=== PATIENT | female | born 1970 | race Caucasian/White ===

== ENCOUNTER 2022-08-27 03:23 | Emergency (ER) | payer MEDICARE ==
[~2022-08-27] VITALS: Ht 167.6 cm; Wt 136.1 kg
[2022-08-27] MEDS ORDERED: LASIX40 MG PO (03:36)
[2022-08-27] MEDS ORDERED: NORVASC10 MG PO (03:37)
[2022-08-27] MEDS ORDERED: CLONIDINE HCL0.1 MG PO (03:37)
[2022-08-27] MEDS ORDERED: LIPITOR40 MG PO (03:37)
[2022-08-27] MEDS ORDERED: KEPPRA500 MG PO (03:38)
[2022-08-27] MEDS ORDERED: LISINOPRIL10 MG PO (03:38)
[2022-08-27] MEDS ORDERED: COREG25 MG PO (03:38)
[2022-08-27] MEDS ORDERED: CITALOPRAM HBR40 MG PO (03:38)
[2022-08-27] MEDS ORDERED: HYDRALAZINE HCL50 MG PO (03:39)
[2022-08-27] MEDS ORDERED: SYNTHROID25 MCG PO (03:39)
[2022-08-27] MEDS ORDERED: ATIVAN0.5 MG PO (03:40)
[2022-08-27] MEDS ORDERED: MECLIZINE HCL25 M1 PO (03:40)
[2022-08-27] MEDS ORDERED: ASPIRIN81 MG PO (03:41)
[2022-08-27] MEDS ORDERED: COLACE100 MG PO (03:42)
[2022-08-27] MEDS ORDERED: NOVOLIN N100 UNIT/1 (03:42)
[2022-08-27] MEDS ORDERED: MAGNESIUM200 MG PO (03:43)
[2022-08-27] MEDS ORDERED: CRANBERRY125 MG PO (03:43)
[2022-08-27] MEDS ORDERED: BACTRIM DS TAB1 EACH PO (06:54)
[2022-08-27 07:06] VITALS: BP 122/81
== END 2022-08-27 07:12 | disposition home or self-care (01) ==
LOC: ED 03:23
DX: N39.0 Urinary tract infection, site not specified (principal); E66.2 Morbid (severe) obesity with alveolar hypoventilation; E87.5 Hyperkalemia; J81.1 Chronic pulmonary edema; I11.9 Hypertensive heart disease without heart failure; E11.9 Type 2 diabetes mellitus without complications; I69.354 Hemiplegia and hemiparesis following cerebral infarction affecting left non-dominant side; Z79.82 Long term (current) use of aspirin; Z68.42 Body mass index [BMI] 45.0-49.9, adult; Z79.899 Other long term (current) drug therapy
CPT/HCPCS: 36415; 71045; 80048; 80053; 81001; 83880; 85025; 96374; 99284-25; A9270; J1940

== ENCOUNTER 2023-02-05 12:48 | Observation (INO) | payer MEDICARE, OTHER ==
[~2023-02-05] VITALS: Ht 167.6 cm; Wt 128.3 kg
[~2023-02-05 12:48] MED LIST: ASPIRIN81 MG PO; ATIVAN0.5 MG PO; BACTRIM DS TAB1 EACH PO; CITALOPRAM HBR40 MG PO; CLONIDINE HCL0.1 MG PO; COLACE100 MG PO; COREG25 MG PO; CRANBERRY125 MG PO; HYDRALAZINE HCL50 MG PO; KEPPRA500 MG PO; LASIX40 MG PO; LIPITOR40 MG PO; LISINOPRIL10 MG PO; MAGNESIUM200 MG PO; MECLIZINE HCL25 M1 PO; NORVASC10 MG PO; NOVOLIN N100 UNIT/1; SYNTHROID25 MCG PO
[2023-02-05 13:01] LABS: HEMOGLOBIN 10.4 g/dL (12.0-18.0)
[2023-02-05 13:03] LABS: BASOPHILS 0.6 % (0-2); EOSINOPHILS 1.6 % (0-6); HEMATOCRIT 32.8 % (35.0-50.0); LYMPHOCYTES 12.5 % (24-44); MCH 28.3 (27-36); MCHC 31.8 g/dl (30-36); MCV 89.1 fl (81-99); MONOCYTES 8.6 % (0-12); NEUTROPHILS 76.7 % (39-80); PLATELET COUNT 231 K/uL (140-440); RBC 3.69 M/ul (4.3-5.7); RDW 16.8 (10.5-15.0)
[2023-02-05 13:21] LABS: ALBUMIN 3.2 g/dL (3.4-5.0); ALBUMIN/GLOBULIN RATIO 0.84 (1.1-2.4); ANION GAP 9.6 (7-21); BILIRUBIN, TOTAL 0.4 ng/dL (0.2-1.0); BUN/CREATININE RATIO 29.37 (6.0-28.6); CALCIUM 9.4 mg/dL (8.5-10.1); CREATININE, SERUM 1.43 mg/dL (0.55-1.02); POTASSIUM 5.6 mmol/L (3.5-5.1)
[2023-02-05 13:26] LABS: BILIRUBIN, URINE NEGATIVE (negative); BLOOD/HGB, URINE SMALL (Negative); KETONE, URINE NEGATIVE (Negative); LEUK ESTERASE, URINE NEGATIVE (negative); NITRITE, URINE NEGATIVE (negative); PH, URINE 5.5 (5-7)
[2023-02-05 13:35] LABS: BACTERIA, URINE NONE SEEN /hpf (negative); CASTS, URINE NONE SEEN \\lpf; COLLECTION TYPE, URINE CLEAN CATCH; CRYSTALS, URINE NONE SEEN (0-1+); EPITHELIAL CELLS, URINE SQUAMOUS 2+ /lpf (0-1+); REFLEX CULTURE, URINE No (No); WHITE BLOOD CELLS, URINE 0-1 /HPF (0-5)
[2023-02-05 13:38] LABS: INFLUENZA B NAA NEGATIVE (NEGATIVE); RESPIRATORY SYNCYTIAL VIR NAA NEGATIVE (NEGATIVE)
[2023-02-05 16:13] LABS: BASE EXCESS, BLOOD GAS 1.6 mmol/L (-2-2); O2 SATURATION, BLOOD GAS 96.4 % (95.0-100.0); OXYGEN RECEIVED, BLOOD GAS 4L; PO2, BLOOD GAS 84 mmHg (80-100); TOTAL CO2, BLOOD GAS 30.8
[2023-02-05 17:42] LABS: ANION GAP 10.8 (7-21); BUN/CREATININE RATIO 28.77 (6.0-28.6); CALCIUM 9.6 mg/dL (8.5-10.1); CREATININE, SERUM 1.39 mg/dL (0.55-1.02); POTASSIUM 5.8 mmol/L (3.5-5.1)
[2023-02-05 18:15] VITALS: BP 136/61
[2023-02-05 18:27] LABS: BASE EXCESS, BLOOD GAS 2.3 mmol/L (-2-2); HCO3, BLOOD GAS 28.7 mmol/L (22-26); O2 SATURATION, BLOOD GAS 95.9 % (95.0-100.0); OXYGEN RECEIVED, BLOOD GAS 32%; PCO2, BLOOD GAS 52.4 mmHg (35-45); PH, BLOOD GAS 7.35 (7.35-7.45); PO2, BLOOD GAS 76 mmHg (80-100); TOTAL CO2, BLOOD GAS 30.4
--- NOTE | 2023-02-05 19:35 | NUR ---
this LAY OUT AND DETAIL DRAFTER assuming pt cares, 1:1 sitter for pt/bipap safety
--- NOTE | 2023-02-05 19:37 | NUR ---
PATIENT WELLS CATHETER INSERTED USING STERILE TECHNIQUE WITH THE HELP OF FOUR OTHER NURSES. URINE FLOWING WITH NO APPARENT ISSUES. SUKUMAR AND SUSHMA RNS TAKING OVER FOR THE COPY PREPARER. PATIENT CALL LIGHT AND PERSONAL BELONGINGS ARE WITHIN REACH. PATIENTS THREE CHILDREN ARE AT THE BEDISDE.
--- NOTE | 2023-02-05 19:46 | NUR ---
REPORT RECIEVED FROM DAY SHIFT RN. ASSISSTED DAY SHIFT WITH WELLS PLACEMENT. LINENS AND GOWN CHANGED. BED BATH COMPLETED. PATIENTS CHILDREN AT BEDSIDE. NO FURTHER NEEDS. CALL LIGHT IN REACH.
[2023-02-05 19:56] VITALS: BP 113/70
--- NOTE | 2023-02-05 20:15 | NUR ---
assist RN with vitals, accu check done, family visting
--- NOTE | 2023-02-05 20:16 | NUR ---
CALLED MD TO UPDATE ON PATIENT UNABLE TO SWALLOW PO MEDICATION. RECIEVED VERBAL ORDER FOR IV MEDICATION. VERIFIED ORDER USING REPEAT BACK METHOD.
--- NOTE | 2023-02-05 21:00 | NUR ---
PATIENT ONE ON ONE FOR SAFETY. MEDICATION ADMINISTERED, SEE MAR. ASSESSMENT COMPLETED. LUNG SOUNDS DIMINISHED. VS AND I&Os OBTAINED AND DOCUMENTED. LEFT ARM RESTED AND FEET ON PILLOW. CALL LIGHT IN REACH. PATIENT REPOSITIONED IN BED. PATIENT OPENS EYES TO NAME. PATIENT DOES NOT ANSWER QUESTIONS AT THIS TIME.
[2023-02-05 21:17] LABS: ANION GAP 10.2 (7-21); BUN/CREATININE RATIO 26.81 (6.0-28.6); CALCIUM 9.4 mg/dL (8.5-10.1); CREATININE, SERUM 1.38 mg/dL (0.55-1.02); POTASSIUM 5.2 mmol/L (3.5-5.1)
--- NOTE | 2023-02-05 21:26 | NUR ---
PLACED CALL TO MED TO UPDATE ON PATIENTS POTASSIUM LEVEL. NO NEW ORDERS AT THIS TIME.
--- NOTE | 2023-02-05 22:06 | NUR ---
PATIENT RESTING IN BED WITH EYES CLOSED WEARING BIPAP. CPOX READING WNL. PREPPER AT BEDSIDE FOR PATIENT SAFETY.
--- NOTE | 2023-02-05 22:30 | NUR ---
manning emptied at this time
--- NOTE | 2023-02-05 23:01 | NUR ---
pt was coughing, called RN in to check pt, boosted 2pa, provided sips of water, attempted multiple need questions with pt, pt resumed bipap
--- NOTE | 2023-02-05 23:14 | NUR ---
BIPAP REMOVED. 3L NC IN PLACE. PATIENT HAD SIPS OF WATER, NO S/SX OF ASPIRATION NOTED. PATIENT BACK ON BIPAP. RACK PULLER AT BEDSIDE.
--- NOTE | 2023-02-05 23:28 | NUR ---
RT IN TO ASSESS PATIENT. NEW MASK PLACED ON PATIENT. PATIENT WILL REMAIN ON BIPAP AT THIS TIME. RN AT BEDSIDE.
--- NOTE | 2023-02-06 00:53 | NUR ---
ROUNDING ON PATIENT. RT IN ROOM ADMINISTERING NEB. CARTOGRAPHY/MAPPING TECHNICIAN AT BEDSIDE. CALL LIGHT IN REACH.
--- NOTE | 2023-02-06 01:15 | NUR ---
VITAL SIGNS AND I&0s OBTAINED AND RECORDED. PATIENT REPOSITIONED IN BED WITH A PILLOW UNDER THE RIGHT HIP. LEFT HAND AND FEET ELEVATED WITH PILLOWS. BIPAP REMOVED OFF PATIENT AND REPLACED WITH 3L NC. PATIENT DRANK SOME SIPS OF WATER. PATIENT ANSWERING YES/NO QUESTIONS. ASSESSMENT COMPLETE. BILAT UPPER LUNG SOUNDS CEAR, BILAT LOWER LUNG SOUNDS DIMINISHED. PATIENT BACK ON BIPAP. REGIONAL EDUCATION MANAGER AT BEDSIDE. CALL LIGHT IN REACH.
[2023-02-06 01:50] VITALS: BP 134/62
--- NOTE | 2023-02-06 03:09 | NUR ---
ROUNDING IN PATIENT. PATIENT RESTING IN BED WITH EYES CLOSED. RESPIRATIONS EVEN. PATIENT SAT IS 93% ON BIPAP. PATIENT SITTER AT BEDSIDE.
--- NOTE | 2023-02-06 03:34 | NUR ---
PATIENT REPOSITIONED IN BED. 2 PILLOWS UNDER LEFT HIP, ONE PILLOW UNDER RIGHT HIP. PATIENTS LEGS ELEVATED WITH PILLOWS. CALL LIGHT IN REACH. SITTER AT BEDSIDE. BIPAP ON PATIENT.
[2023-02-06 05:07] LABS: PH, VENOUS 7.487 (7.31-7.41)
[2023-02-06 05:08] LABS: BASOPHILS 0.4 % (0-2); EOSINOPHILS 1.6 % (0-6); HEMATOCRIT 31.6 % (35.0-50.0); HEMOGLOBIN 10.3 g/dL (12.0-18.0); LYMPHOCYTES 17.3 % (24-44); MCH 28.4 (27-36); MCHC 32.5 g/dl (30-36); MCV 87.3 fl (81-99); MONOCYTES 10.6 % (0-12); NEUTROPHILS 70.1 % (39-80); PLATELET COUNT 226 K/uL (140-440); RBC 3.62 M/ul (4.3-5.7); RDW 17.4 (10.5-15.0)
[2023-02-06 05:17] LABS: ANION GAP 10.4 (7-21); BUN/CREATININE RATIO 24.6 (6.0-28.6); CALCIUM 9.4 mg/dL (8.5-10.1); CREATININE, SERUM 1.26 mg/dL (0.55-1.02); POTASSIUM 4.4 mmol/L (3.5-5.1)
--- NOTE | 2023-02-06 05:39 | NUR ---
ROUNDING ON PATIENT. PATIENT RESTING IN BED WITH EYES CLOSED. CPOX 93% ON 3L NC. CALL LIGHT IN REACH.
[2023-02-06 06:36] VITALS: BP 132/63
--- NOTE | 2023-02-06 06:52 | NUR ---
PATIENT REPOSITINED IN BED. VS AND I&Os OBTAINED AND DOCUMENTED. PATIENT ON 3L NC AND 97%. SECOND ASSESSMENT COMPLETE. PATIENT KNOWS OWN NAME, BUT NOT WHERE SHE IS. PATIENT ANSWERES YES/NO QUESTIONS. CALL LIGHT IN REACH.
--- NOTE | 2023-02-06 07:26 | NUR ---
REPORT RECIEVED FROM AIRPORT MAINTENANCE CHIEF RN. PATIENT SITTING UPRIGHT IN BED. PATIENT ALERT TO SELF AND ABLE TO STATE "I WANT WATER". PATIENT AWAKE AND ALERT. PATIENT STATED NO FURTHER NEEDS AT THIS TIME. CALL LIGHT WITHIN REACH.
--- NOTE | 2023-02-06 09:10 | NUR ---
RT IN ROOM FOR ABG. PT WAKES TO VOICE, FOLLOWS COMMANDS AND ANSWERS YES OR NO QUESTIONS.
[2023-02-06 09:19] LABS: BASE EXCESS, BLOOD GAS 5.9 mmol/L (-2-2); HCO3, BLOOD GAS 31.2 mmol/L (22-26); O2 SATURATION, BLOOD GAS 94.6 % (95.0-100.0); OXYGEN RECEIVED, BLOOD GAS 3L; PCO2, BLOOD GAS 46.9 mmHg (35-45); PH, BLOOD GAS 7.43 (7.35-7.45); PO2, BLOOD GAS 67 mmHg (80-100); TOTAL CO2, BLOOD GAS 32.7
[2023-02-06 10:40] VITALS: BP 141/71
[2023-02-06] MEDS ORDERED: MELATONIN10 M2 PO (11:00)
[2023-02-06] MEDS ORDERED: CENTRUM SILVER1 EAC8 PO (11:00)
[2023-02-06] MEDS ORDERED: VITAMIN D325 MC4 PO (11:01)
--- NOTE | 2023-02-06 11:03 | NUR ---
MED REC COMPLETE
--- NOTE | 2023-02-06 13:01 | NUR ---
PATIENT ABLE TO HAVE A BOWEL MOVEMENT AFTER SUPPOSITORY GIVEN. BED SHEETS CLEANED AND BED BATH GIVEN. MORENO CARE COMPLETE. INPUT AND OUTPUT VALUES DOCUMENTED. PATIENT RESTING IN THE BED WITH EYES CLOSED AND EVEN AND UNLABORED RESPIRATIONS. PATIENT POSITIONED IN SEMI FOWLERS. PATIENT TWO DAUGHTERS ARE AT THE BEDSIDE. PATIENT WAITING TO EAT LUNCH UNTIL AFTER THEY ARE DONE RESTING. PATIENT AND FAMILY STATED NO FURTHER NEEDS AT THIS TIME. PATIENT STATED NO FURTHER NEEDS AT THIS TIME. CALL LIGHT AND PERSONAL BELONGIGNS ARE WITHIN REACH.
[2023-02-06 14:27] VITALS: BP 112/53
--- NOTE | 2023-02-06 14:32 | NUR ---
PATIENT REPOSITIONED IN BED WITH LEG LEG AND LEFT ARM ELEVATED ON PILLOWS. PATIENT VITAL SUGNS AND INTAKE AND OUTPUT VALUES DOCUMENTED. PATIENT SON AT BEDSIDE. PATIENT STATED NO FURTHER NEEDS AT THIS TIME. PATIENT CALLL LIGHT AND PERSONAL BELONGINGS ARE WITHIN REACH.
--- NOTE | 2023-02-06 15:20 | EKG ---
[facility] [address] [facility] [address] [place], [place] [address] Signed Normal sinus rhythm Low voltage QRS Borderline ECG No previous ECGs available Confirmed by RODRICK BRISENO MD ([id number]) on 02/06/2023 3:19:53 PM Electronically Signed By: RODRICK BRISENO 02/06/23 1520 PATIENT NAME: TED RAMEY Electrocardiogram DATE OF : 72 PHYSICIAN: RODRICK BRISENO REPORT #: [id number] REPORT IS CONFIDENTIAL AND NOT TO BE RELEASED WITHOUT AUTHORIZATION
--- NOTE | 2023-02-06 16:50 | NUR ---
PATIENT SITTING IN THE BED. PATIENT IV SITE DRESSINGS CHANGED. BOTH IV SITES FLUSHED WITH 10 ML NS. PATIENT TOLERATED WELL. PATIENT BOOSTED UP IN THE BED. HEAD OF BED IN SEMI-FOWLERS TO HELP WITH WORK OF BREATHING. PATIENTS DAUGHTER AT BEDSIDE. PATIENTS REQUESTING TO WAIT TO BRING DINNER IN UNTIL A BIT LATER SINCE SHE WAS SNACKING ON LUNCH A LITTLE BIT. BLOOD SUGAR CHECK WILL BE DONE PRIOR TO EATING. PATIENT AND FAMILY STATED NO FURTHER NEEDS AT THIS TIME. CALL LIGHT AND PERSONAL BELONGINGS ARE WITHIN REACH.
[2023-02-06 18:32] VITALS: BP 117/63
--- NOTE | 2023-02-06 19:40 | NUR ---
REPORT RECIEVED FROM DAY SHIFT RN. PATIENT IN BED WITH DAUGHTER AT BEDSIDE ON 3L NC. DAUGHTER STATES SHE WILL BE STAYING OVER NIGHT. CALL LIGHT IS WITHIN REACH. NO FURTHER NEEDS.
[2023-02-06 20:25] VITALS: BP 104/56
--- NOTE | 2023-02-06 21:15 | NUR ---
PATIENT REPOSITIONED IN BED WITH PILLOW PLACED UNDER LEFT SIDE. LEFT ARM ELEVATED ON PILLOW. VS AND I&Os OBTAINED AND DOCUMENTED. IVs FLUSHED AND WNL. CATHETER CARE DONE. MEDICATIONS ADMINISTERED, SEE MAR. ASSESSMENT COMPLETE. LUNG SOUNDS CLEAR, DIMINISHED IN BASES ON 3L NC. DAUGHTER AT BEDSIDE, PLANS TO STAY OVER NIGHT. WARM BLANKET AND FRESH WATER PROVIDED. CALL LIGHT IN REACH. NO FURTHER NEEDS.
--- NOTE | 2023-02-06 22:15 | NUR ---
PATIENT PLACED ON BIPAP MASK BY RT.
--- NOTE | 2023-02-06 22:27 | NUR ---
CALL LIGHT ANSWERED. BIPAP MASK LEAKING, RT IN TO ADJUST MASK. PATIENT AND DAUGHTER STATE NO FURTHER NEEDS. CALL LIGHT IN REACH.
--- NOTE | 2023-02-06 23:36 | NUR ---
PATIENT RESTING IN BED WITH EYES CLOSED. BIPAP MACHINE IN PLACE ON PATIENT. PATIENT AND DAUGHTER STATE NO FURTHER NEEDS. CALL LIGHT IN REACH.
--- NOTE | 2023-02-07 00:04 | NUR ---
PATIENT REPOSITIONED IN BED. PATIENT FLOATED WITH PILLOWS. CALL LIGHT IN REACH.
--- NOTE | 2023-02-07 01:39 | NUR ---
PATIENT LAYING IN BED WITH EYES CLOSED. s. DAUGHTER RESTING ON COUCH AT BEDSIDE. CALL LIGHT IN REACH.
--- NOTE | 2023-02-07 03:03 | NUR ---
PATIENT RESTING IN BED ON BACK WITH EYES CLOSED. BIPAP ON. RESPIRATIONS EVEN. CALL LIGHT IN REACH.
[2023-02-07 05:44] VITALS: BP 107/49
--- NOTE | 2023-02-07 05:47 | NUR ---
PATIENT REMOVED FROM BIPAP. PATIENT ON 3L NC O2 SAT 96%. PATIENT AWAKE WATCHING TV. PATIENT READJUSTED IN BED. PATIENT VS I&Os OBTAINED AND RECORDED. ASSESSMENT COMPLETE. PATIENT IS AWARE OF SELF, AND PLACE. PATIENT ANSERING YES OR NO QUESTIONS. DAUGHTER IS AT BEDSIDE. CALL LIGHT IS IN REACH. NO FURTHER NEEDS. FRESH WATER PROVIDED.
--- NOTE | 2023-02-07 07:30 | NUR ---
RECIEVED SHIFT REPORT PT IS CURRENTLY AWAKE AND WATCHING TV. WHEN I INTRODUCED MYSELF PT HAD NO REPONSE JUST EYE CONTACT. FAMILY MEMBER IN ROOM. NO OTHER CARES ARE NEEDED OR REQUESTED AT THIS TIME CALL LIGHT WITHIN REACH.
--- NOTE | 2023-02-07 09:32 | NUR ---
RX FOR BIPAP, FACESHEET, CHART NOTES AND BIPAP SETTINGS FAXED TO [facility] FOR DISCHARGE. SPOKE WITH PATIENTS DAUGHTER AND . FAMILY IS REQUESTING HOME HEALTH POST DISCHARGE, ASSISTANCE WITH WITH TRANSPORTATION AND TO TO DISCUSS HER SLEEP STUDY. WILL SEND HOME HEALTH AT DISCHARGE. LEFT MESSAGE FOR [facility] TO CONTACT PATIENT DAUGHTER TOMORROW.
[2023-02-07 10:09] LABS: BASOPHILS 0.4 % (0-2); EOSINOPHILS 1.5 % (0-6); HEMATOCRIT 31.8 % (35.0-50.0); HEMOGLOBIN 10.3 g/dL (12.0-18.0); LYMPHOCYTES 12.5 % (24-44); MCH 28.4 (27-36); MCHC 32.5 g/dl (30-36); MCV 87.6 fl (81-99); MONOCYTES 10.6 % (0-12); PLATELET COUNT 223 K/uL (140-440); RBC 3.63 M/ul (4.3-5.7); RDW 16.9 (10.5-15.0)
[2023-02-07 10:36] LABS: ALBUMIN 2.9 g/dL (3.4-5.0); ALBUMIN/GLOBULIN RATIO 0.81 (1.1-2.4); ANION GAP 10.6 (7-21); BILIRUBIN, TOTAL 0.5 ng/dL (0.2-1.0); BUN/CREATININE RATIO 18.85 (6.0-28.6); CALCIUM 8.8 mg/dL (8.5-10.1); CREATININE, SERUM 1.22 mg/dL (0.55-1.02); POTASSIUM 4.6 mmol/L (3.5-5.1); PROTEIN, TOTAL 6.5 g/dL (6.4-8.2); TSH, 3RD GENERATION 3.284 uIU/mL (0.358-3.740)
[2023-02-07 10:40] VITALS: BP 103/53
--- NOTE | 2023-02-07 10:44 | NUR ---
IV ZITHROMAX INFUSING FOR 1 HOUR.
--- NOTE | 2023-02-07 10:50 | NUR ---
RN SURESH OVER TO CHECK ON PT WHILE THIS RN IN ROOM. PT HAD A 20 SECOND RUN OF VTACH. PT REMAINED SAME, NO SOB OR CHEST DISCOMFORT REPORTED. DAUGHTER AND OTHER FAMILY IN ROOM. SPOKE WITH WHOM ADDED A MAG TO RECENTLY DRAWN LAB.S
--- NOTE | 2023-02-07 11:06 | NUR ---
PLACED SUPPOSITORY PER PT REQUEST.
[2023-02-07] MEDS ORDERED: AMOX TR-K CLV1 EACH PO (11:16)
--- NOTE | 2023-02-07 11:48 | NUR ---
PT RECEIVING NURSING CARE AHEAD OF IMMINENT DISCHARGE. DID NOT INTERRUPT. PRAYED FOR [place] OF HEALTH AND ABIDING PEACE.
--- NOTE | 2023-02-07 14:12 | NUR ---
PT REPORTED FEELING LIKE SHE HAD PEED. CHANGED DEPENDS AND CHUCKS WITH AMI SCHAFFER'S ASSISTANCE. PT TOLTERATED WELL.
[2023-02-07 14:13] VITALS: BP 111/61
--- NOTE | 2023-02-07 14:17 | NUR ---
PATIENT HAD INCONT. VOID. THIS SOLUTIONS DEVELOPER AND RN XIOMARA IN TO CHANGE PATIENT. MORENO CARE DONE. NEW ATTENDS IN PLACE. VITALS AND I&O'S DONE. CALL LIGHT IN REACH. NO FURTHER NEEDS AT THIS TIME.
--- NOTE | 2023-02-07 15:20 | NUR ---
PT CALLED FOR BEEPING. SL IV, MAG COMPLETE.
--- NOTE | 2023-02-07 16:53 | NUR ---
PT EXPRESSED PAIN IN LOWER BACK AND ASKED FOR ICY/HOT IF POSSIBLE. I EXPLAINED TO DAUGHTER AND PATIENT THAT WE DONT CARRY THAT PRODUCT BUT I CAN ASK THE DR ABOUT A [place] PATCH. NOEL SOLANO TALKED TO DR AND HE APPROVED OF THE PATCH. PT GOT CHANGED AND THEN PATCHED APPLIED TO MIDDLE OF BACK. NO OTHER CARES REQUESTED OR NEEDED AT THIS TIME. CALL LIGHT WITHIN REACH
[2023-02-07 18:31] VITALS: BP 101/49
--- NOTE | 2023-02-07 19:48 | NUR ---
REPORT RECIEVED FROM DAY SHIFT RN. PATIENT RESTING IN BED WITH DAUGHTER AT BEDSIDE. WHITE BOARD UPDATED. CALL LIGHT IN REACH.
[2023-02-07 21:53] VITALS: BP 115/60
--- NOTE | 2023-02-07 22:10 | NUR ---
VS AND I&Os OBTAINED AND RECORDED. PATIENT REPOSITIONED IN BED. PUREWICK PUT IN PLACE AFTER PERICARE PROVIDED. EVENING MEDICATIONS ADMINISTERED, SEE MAR. ASSESSMENT COMPLETE. PATIENT REQUESTING FOOD. SANDWICH BOX PROVIDED. DAUGHTER AT BEDSIDE, HELPING PATIENT EAT. DAUGHTER PROVIDED WITH BEDDING, AND WILL BE STAYING OVER NIGHT. PATIENT HAS NO FURTHER NEEDS. CALL LIGHT IN REACH.
--- NOTE | 2023-02-08 00:23 | NUR ---
PATIENT RESTING IN BED WITH EYES CLOSED. RESPIRATIONS EVEN AND UNLABORED. DAUGHTER RESTING ON COUCH. CALL LIGHT IN REACH.
[2023-02-08 02:36] VITALS: BP 123/62
--- NOTE | 2023-02-08 02:38 | NUR ---
PATIENT RESTING IN BED. RESPIRATIONS EVEN AND UNLABORED. VS OBTAINED AND RECORDED. CALL LIGHT IN REACH.
--- NOTE | 2023-02-08 03:38 | NUR ---
PATIENT IN BED RESTING ON BACK WITH HOB ELEVATED. RESPIRATIONS EVEN AND UNLABORED. DAUGHTER RESTING ON COUCH. CALL LIGHT IN REACH.
[2023-02-08 06:43] VITALS: BP 109/60
--- NOTE | 2023-02-08 06:45 | NUR ---
PATIENT RESTING IN BED WITH EYE CLOSED. VS AND I&Os OBTAINED AND RECORDED. NEW PUREWICK PUT IN PLACE AFTER MORENO CARE PROVIDED. NEW BRIEF IN PLACE. ASSESSMENT COMEPLETE. EXPIRATORY WHEEZES IN LEFT UPPER AND LOWER LOBES. FRESH WATER AND WARM BLANKET PROVIDED. WEIGHT ON BED SCALE OBTAINED. NO FURTHER NEEDS. CALL LIGHT IN REACH.
--- NOTE | 2023-02-08 07:48 | NUR ---
PT RESTING EYES CLOSED AT TIME OF SHIFT REPORT. DAUGHTER IS AWAKE AND PRESENT IN THE ROOM DENIES NEEDS OR CONCERNS
--- NOTE | 2023-02-08 10:08 | NUR ---
LIGHTS OFF AND CURTAIN CLOSED. DID NOT DISTURB. PRAYED SILENTLY FOR [employer] OF HEALTH AND ABIDING PEACE.
[2023-02-08 10:20] VITALS: BP 123/62
--- NOTE | 2023-02-08 10:21 | NUR ---
PATIENT IN BED RESTING WITH EYES CLOSED, DAUGHTER IN ROOM. VITALS AND I&O'S CHARTED. CALL LIGHT IN REACH. NO FURTHER NEEDS AT THIS TIME.
--- NOTE | 2023-02-08 10:39 | NUR ---
PT TOLERATES 100% OF MORNING MEAL WITH DAUGHTERS ASSIST. REFUSES SUPPOSITORY AT THIS TIME, RESTING EYES CLOSED DAUGHTER REMAINS PRESENT
--- NOTE | 2023-02-08 11:14 | NUR ---
PT RESTING EYES CLOSED. APPROACHED DAUGTHER STATING PT SHOULD BE REPOSITIONED, ASKING IF IT IS A GOOD TIME OR LET HER SLEEP. DAUGHTER STATES PT SHOULD BE ALLOWED TO SLEEP AT THIS TIME. ENCOURAGED HER TO CALL WHEN PT WAKES UP OR IF THERE ARE ANY NEEDS
--- NOTE | 2023-02-08 11:28 | NUR ---
RECVD CALL FROM JOSE HUNTER FOR [facility] AT THIS TIME. INSURANCE REQUESTING FURTHER DOCUMENTATION. ADVISED [facility] I WILL UPDATE DR. BRISENO. DR. BRISENO NOTIFIED, OKAY TO DC PATIENT. INTO PATIENT ROOM. PATIENT SLEEPING, DAUGHTER AT THE BEDSIDE. ADVISED THE NEED FOR FURTHER DOCUMENTATION AND ENCOURAGED TO SPEAK WITH PCP AT HER VISIT ON TUESDAY. PATIENTS DAUGHTER AGREEABLE TO DISCHARGE AT THIS TIME. CALL PLACED TO TO PFD, WILL DISPATCH FOR NON EMERGANT TRANSPORT AND CALL FLOOR WITH ETA WHEN AVAILABLE.
--- NOTE | 2023-02-08 11:50 | NUR ---
BELONGINGS BAG PROVIDED DAUGHTER GATHERING ITEMS FOR DC. LOTIONS, WIPES, AND OPEN HOSPITAL SUPPLIES INCLUDED WITH PERSONAL ITEMS
--- NOTE | 2023-02-08 11:56 | NUR ---
UR NOTE [facility]CG HEART FAILURE: OBSERVATION CARE (ISC) 02/05/23 MET OBSERVATION ADMIT
== END 2023-02-08 11:55 | disposition home or self-care (01) ==
LOC: ED 12:48 → MS 12:49
PROVIDERS: Emergency Medicine; ADMIT Internal Medicine; ATTEND Internal Medicine
DX: E66.2 Morbid (severe) obesity with alveolar hypoventilation (principal); R06.89 Other abnormalities of breathing; R41.82 Altered mental status, unspecified; E11.9 Type 2 diabetes mellitus without complications; G40.909 Epilepsy, unspecified, not intractable, without status epilepticus; I11.0 Hypertensive heart disease with heart failure; I50.9 Heart failure, unspecified
CPT/HCPCS: 36415; 36600; 51701; 70450; 71045; 80048; 80053; 80061; 81001; 82803; 83036; 83735; 83880; 84443; 85025; 87502; 93005; 93010; 94640; 94660; 94762; 96365; 96366; 96367; 96375; 96376; 97161; 97165; 99285-25; A9270; C9803; G0378; J0456; J0696; J1815; J1940; J1953; J3475; J7060; U0002

== ENCOUNTER 2023-09-13 10:22 | Emergency (ER) | payer MEDICARE, MEDICAID ==
[~2023-09-13] VITALS: Ht 162.6 cm; Wt 126.8 kg
[~2023-09-13 10:22] MED LIST changes: +ADULT ASPIRIN R81 MG PO; +AMLODIPINE BESY10 MG PO; +AMOX TR-K CLV1 EACH PO; +ATORVASTATIN CA40 MG PO; +CARVEDILOL25 MG PO; +CEFDINIR300 MG PO; +CENTRUM SILVER1 EAC8 PO; +CONSTULOSE10 GM/15 M PO; +FUROSEMIDE40 MG PO; +HUMULIN R100 UNIT/1 SUB-Q; +LEVETIRACETAM500 MG PO; +LEVOTHYROXINE25 MCG PO; +LORAZEPAM0.5 MG PO; +MECLIZINE HCL12.5 MG PO; +MELATONIN 10 M1 EACH PO; +MELATONIN10 M2 PO; +MULTI VITAMIN1 EACH PO; +NOVOLIN N100 UNIT/1 SUB-Q; +OLANZAPINE5 MG PO; +ONDANSETRON HCL4 MG PO; +OZEMPIC0.25 MG/02 SUB-Q; +TRELEGY ELLIPT1 EACH INH; +VENTOLIN HFA18 GM INH; +VITAMIN D325 MC4 PO; +VITAMIN D325 MCG PO; +ZYPREXA ZYDIS5 MG PO
--- OUTSIDE RECORDS SUMMARY | 2023-09-13 10:24 | XMS ---
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 Jared has no Care Guidelines for this patient. Beth VISIT COUNT (12 MO.) 5 COR[facility] Lopez TOTAL 5 NOTE: Visits indicate total known visits. ED/C VISIT TRACKING (12 MO.) 09/13/2023 10:23 [facility] [place] TYPE: Emergency COMPLAINT: - HIGH BLOOD SUGAR 07/27/2023 13:53 [facility] [place] TYPE: Emergency COMPLAINT: - LOW 02 SATS DIAGNOSES: - Hormone replacement therapy - [facility] (current) use of aspirin - emt intermediate (current) use of insulin - Other longterm (current) drug therapy - Personal history of transient ischemic attack (TIA), and cerebral infarction without residual deficits - Shortness of breath - Urinary tract infection, site not specified 06/21/2023 11:05 [facility] [place] TYPE: Emergency COMPLAINT: - DIFFICULT BREATHING 04/12/2023 17:28 [facility] TYPE: Emergency COMPLAINT: - URINE PROBLEM DIAGNOSES: - Body mass index [BMI] 45.0-49.9, adult - Constipation, unspecified - Essential (primary) hypertension - Hormone replacement therapy - [facility] (current) use of aspirin - emt intermediate (current) use of insulin - Obesity, unspecified - Other termite exterminator (current) drug therapy - Other symptoms and signs involving appearance and behavior - Type 2 diabetes mellitus without complications 02/05/2023 12:48 [facility] TYPE: Emergency COMPLAINT: - ALTERED LOC INPATIENT VISIT TRACKING (12 MO.) 06/21/2023 13:26 [facility] [place] TYPE: Medical Surgical COMPLAINT: - CO2 RETENTION DIAGNOSES: - Acute and chronic respiratory failure with hypercapnia - Acute and chronic respiratory failure with hypercapnia - Acute and chronic respiratory failure with hypoxia - Acute and chronic respiratory failure with hypoxia - Acute respiratory failure with hypoxia - Body mass index [BMI] 50.0-59.9, adult - Chronic obstructive pulmonary disease, unspecified - Chronic obstructive pulmonary disease, unspecified - Dependence on supplemental oxygen - Dependence on supplemental oxygen - Essential (primary) hypertension - Essential (primary) hypertension - Hemiplegia and hemiparesis following cerebral infarction affecting left non-dominant side - Hemiplegia and hemiparesis following cerebral infarction affecting left non-dominant side - Hyperkalemia - Hyperkalemia - Hypotension, unspecified - [facility] (current) use of aspirin - emt intermediate (current) use of aspirin - [facility] (current) use of inhaled steroids - [facility] (current) use of inhaled steroids - emt intermediate (current) use of insulin - emt intermediate (current) use of insulin - Morbid (severe) obesity due to excess calories - Morbid (severe) obesity due to excess calories - Other longterm (current) drug therapy - Other longterm (current) drug therapy - Type 2 diabetes mellitus without complications - Type 2 diabetes mellitus without complications 02/05/2023 12:49 [facility] TYPE: Observation COMPLAINT: - ALTERED MENTAL STATUS DIAGNOSES: - Altered mental status, unspecified - Epilepsy, unspecified, not intractable, without status epilepticus - Heart failure, unspecified - Hypertensive heart disease with heart failure - Morbid (severe) obesity with alveolar hypoventilation - Other abnormalities of breathing - Type 2 diabetes mellitus without complications [email or web address]
[2023-09-13] MEDS ORDERED: PANTOPRAZOLE SODIUM 40 MG TABEC PO ONE (10:45)
[2023-09-13] MEDS ORDERED: SODIUM CHLORIDE 0.9% 1,000 ML IV ONE (10:45)
[2023-09-13] MEDS ORDERED: ondansetron HCL 4 MG/2 ML VIAL IV ONE (10:45)
[2023-09-13 10:49] LABS: BASOPHILS 0.2 % (0-2); EOSINOPHILS 0.1 % (0-6); HEMATOCRIT 40.7 % (35.0-50.0); HEMOGLOBIN 13.6 g/dL (12.0-18.0); MCH 30.2 (27-36); MCHC 33.3 g/dl (30-36); MCV 90.6 fl (81-99); MONOCYTES 8.4 % (0-12); NEUTROPHILS 84.3 % (39-80); PLATELET COUNT 246 K/uL (140-440); RDW 15.7 (10.5-15.0)
[2023-09-13 10:59] LABS: ALBUMIN 2.9 g/dL (3.4-5.0); ALBUMIN/GLOBULIN RATIO 0.66 (1.1-2.4); ANION GAP 14.1 (7-21); BILIRUBIN, TOTAL 0.5 ng/dL (0.2-1.0); BUN/CREATININE RATIO 21.73 (6.0-28.6); CALCIUM 9.6 mg/dL (8.5-10.1); CREATININE, SERUM 1.61 mg/dL (0.55-1.02); POTASSIUM 5.1 mmol/L (3.5-5.1); PROTEIN, TOTAL 7.3 g/dL (6.4-8.2)
[2023-09-13 11:01] LABS: PH, VENOUS 7.398 (7.31-7.41)
[2023-09-13 11:40] LABS: ABO O; ANTIBODY SCREEN NEGATIVE; RH POSITIVE
[2023-09-13 12:27] LABS: BILIRUBIN, URINE NEGATIVE (negative); BLOOD/HGB, URINE SMALL (Negative); KETONE, URINE NEGATIVE (Negative); LEUK ESTERASE, URINE NEGATIVE (negative); NITRITE, URINE NEGATIVE (negative); PH, URINE 5.5 (5-7)
[2023-09-13] MEDS ORDERED: Insulin Regular, Human 100 UNIT/ML ML SUB-Q ONE (12:30)
[2023-09-13 12:41] LABS: BACTERIA, URINE NONE SEEN /hpf (negative); CASTS, URINE HYALINE 1+ \\lpf; COLLECTION TYPE, URINE CLEAN CATCH; CRYSTALS, URINE NONE SEEN (0-1+); EPITHELIAL CELLS, URINE SQUAMOUS 3+ /lpf (0-1+); REFLEX CULTURE, URINE No (No); WHITE BLOOD CELLS, URINE 0-1 /HPF (0-5)
[2023-09-13] MEDS ORDERED: ONDANSETRON ODT4 MG PO (12:59)
[2023-09-13] MEDS ORDERED: PROTONIX40 MG PO (12:59)
[2023-09-13] MEDS ORDERED: ondansetron HCL 4 MG/2 ML VIAL ONE (13:23)
[2023-09-13 14:32] LABS: HEMOGLOBIN 13.5 g/dL (12.0-18.0); MCV 91.8 fl (81-99)
[2023-09-13 14:35] LABS: BASOPHILS 0.5 % (0-2); EOSINOPHILS 0.2 % (0-6); HEMATOCRIT 41.6 % (35.0-50.0); LYMPHOCYTES 9.8 % (24-44); MCH 29.8 (27-36); MCHC 32.5 g/dl (30-36); MONOCYTES 8.9 % (0-12); NEUTROPHILS 80.6 % (39-80); PLATELET COUNT 241 K/uL (140-440); RBC 4.54 M/ul (4.3-5.7); RDW 15.1 (10.5-15.0)
[2023-09-13 14:40] LABS: ANION GAP 11.8 (7-21); BUN/CREATININE RATIO 23.97 (6.0-28.6); CALCIUM 9.3 mg/dL (8.5-10.1); CREATININE, SERUM 1.46 mg/dL (0.55-1.02); POTASSIUM 4.8 mmol/L (3.5-5.1)
[2023-09-13] MEDS ORDERED: SODIUM CHLORIDE 0.9% 1,000 ML IV PRN (15:00)
[2023-09-13 23:30] VITALS: BP 128/86
== END 2023-09-13 23:30 | disposition home or self-care (01) ==
LOC: ED 10:22
PROVIDERS: Emergency Medicine
DX: K29.70 Gastritis, unspecified, without bleeding (principal); R73.9 Hyperglycemia, unspecified; E66.01 Morbid (severe) obesity due to excess calories; Z68.41 Body mass index [BMI] 40.0-44.9, adult; Z79.4 Long term (current) use of insulin; Z79.82 Long term (current) use of aspirin; Z79.890 Hormone replacement therapy; Z79.899 Other long term (current) drug therapy
CPT/HCPCS: 36415; 51701; 71045; 74177; 80048; 80053; 81001; 82803; 83690; 84703; 85025; 86850; 86900; 86901; 99284-25; A9270; J1815; J2405; J7030; Q9967